=== PATIENT | female | born 1965 | race Caucasian/White ===

== ENCOUNTER 2022-03-28 20:52 | Observation (INO) | payer MEDICARE, SELFPAY ==
[2022-03-28] VITALS (8 sets, daily range): BP systolic 118–130; BP diastolic 56–76; PULSE 70–85; RESP 22–29; TEMP 36.5; O2SAT 79–100
--- NOTE | 2022-03-28 21:02 | DI.RAD.S_ITS ---
PROCEDURE: XR RIBS LT MIN 3V W CXR1V INDICATIONS: fall TECHNIQUE: 3 views of the left ribs were acquired, along with a single view chest. COMPARISON: None. FINDINGS: Surgical changes and devices: None. Bones and chest wall: There is a questionable nondisplaced lateral 5th and 6th rib fractures. They are not well seen on all views. No suspicious bony lesions. Overlying soft tissues appear unremarkable. Lungs and pleura: No pleural effusions or pneumothorax. Lungs appear clear. Mediastinum: Mediastinal contours appear normal. Heart size is normal. IMPRESSION: Questionable nondisplaced lateral 5th and 6th left rib fractures. It is noted the irregularity is not seen on all views and could be artifactual. Dictated by: Zohreh Veras M.D. on 03/28/2022 at 22:36 Approved by: Zohreh Veras M.D. on 03/28/2022 at 22:38
--- NOTE | 2022-03-28 21:13 | ED_ITS ---
HPI - Fall General Chief Complaint: Fall Stated Complaint: Left side pain Time Seen by Provider: 03/28/22 21:09 Source: patient and EMS Mode of arrival: EMS History of Present Illness HPI Narrative: Patient is a 57-year-old female without significant past medical history presenting today after a fall and vomiting. She is going through a divorce she started drinking alcohol 2 weeks ago but has not had anything to drink it really untill this morning. He says she fell 2 weeks ago she had blackout drunk. She day her sister came to check on her, she says she was belligerent she was screaming, possibly fell and hit her head. She has now been vomiting most of the day is. Patient is really complaining of some left-sided hip and rib pain. No shortness of breath. She currently has persistent vomiting. Related Data Home Medications Medication Instructions Recorded Confirmed Cyclobenzaprine Hydrochloride 10 mg PO PRN ##0 08/26/11 03/29/22 (#FLEXERIL) HYDROCODONE/ACET (HYDROCODONE 1 tab PO BID ##0 08/26/11 03/29/22 BITARTRATE-ACETAMINOPHEN) ZINC GLUCONATE (#ZINC) 25 mg PO QDAY ##0 08/26/11 03/29/22 [CALCIUM MAGNESIUM ] ##0 08/26/11 ibuprofen 800 mg tablet 800 mg PO TID ##0 08/26/11 03/29/22 ondansetron HCl 4 mg tablet 4 mg PO TID ##0 08/26/11 03/29/22 Allergies Allergy/AdvReac Type Severity Reaction Status Date / Time acetaminophen [From Vicodin] AdvReac Unknown Verified 03/28/22 21:53 hydrocodone [From Vicodin] AdvReac Unknown Verified 03/28/22 21:53 Review of Systems Review of Systems Narrative: GENERAL: Denies chills, fatigue, malaise, fever, sweats, travel HEENT: Denies sinus pain, ear pain, sore throat, difficulty swallowing, neck pain RESPIRATORY: Denies dyspnea, cough, wheezing, hemoptysis, sputum. CARDIOVASCULAR: Denies chest pain, palpitations, orthopnea, edema GASTROINTESTINAL: See HPI : Denies dysuria, frequency, incontinence, hematuria, urinary retention, flank pain. MUSCULOSKELETAL: Denies weakness, joint pain, or bony pain SKIN: No rash, no erythema, no pruritus NEUROLOGIC: Denies weakness, dizziness, headache, numbness, change in speech, confusion PSYCHIATRIC: No concerning psychosocial issues. 12 point review of systems is negative except for those stated above and HPI Patient History Social History household members: none Smoking Status: Never smoker alcohol intake: current Exam Initial Vital Signs Initial Vital Signs: Vital Signs Temperature 97.7 F 03/28/22 20:56 Pulse Rate 82 03/28/22 20:56 Respiratory Rate 22 03/28/22 20:56 Blood Pressure 130/76 03/28/22 20:56 Pulse Oximetry 98 03/28/22 20:56 Oxygen Delivery Method 03/28/22 20:56 GENERAL: Alert 57-year-old female and in no acute distress. HEENT: Head atraumatic,EOMI, pupils reactive, face symmetric, moist mucous membranes CARDIOVASCULAR: Regular rate and rhythm without murmurs, rubs or gallops. No paradoxical movements no contusion no sign of trauma RESPIRATORY: Breath sounds equal bilaterally, no wheezes rales or rhonchi. ABDOMEN: Soft, nontender. Normoactive bowel sounds all 4 quadrants. No guarding or rebound. EXTREMITIES: Normal range of motion, no clubbing or edema. Neurovascularly intact. Mild tenderness left hip and lumbar area no vertebral tenderness left rib pain NEUROLOGICAL: Alert and oriented x4.Normal gait and speech. SKIN: Warm, dry, no laceration, no petechiae, no rashes or lesions. Course Orders Ordered: ED Orders 03/28/22 20:38 CBC Auto Diff [Complete Blood Count AUTO DIFF] Stat CMP [Comprehensive Metabolic Panel] Stat ETOH [Ethanol (ETOH)] Stat Lactate (Lactic Acid) Stat Lipase Stat 03/28/22 21:02 XR ribs LT min 3V w CXR1V Stat 03/28/22 21:20 CT head/brain wo con Stat 03/28/22 23:22 CT cervical spine wo con Stat CT chest abd pel w con Stat 03/29/22 EKG-12 Lead Routine Acetaminophen (Acetaminophen 325 Mg Tablet) 650 mg PO Q6HR PRN PRN Reason: Fever/Mild Pain (1-3) Sodium Chloride (Normal Saline 0.9%) 1,000 mls @ 125 mls/hr IV CONT OLIVIER Last Admin: 03/29/22 03:15 Dose: 125 mls/hr Documented By: MEL Morphine Sulfate (Morphine 4 Mg/Ml Inj) 4 mg IV Q2HR PRN PRN Reason: Pain, Moderate (4-6) Ondansetron HCl (Ondansetron 4 Mg/2 Ml Inj) 4 mg IV Q4HR PRN PRN Reason: Nausea And Vomiting Discontinued Medications Sodium Chloride (Normal Saline 0.9%) 1,000 mls @ 1,000 mls/hr IV BOLUS ONE Stop: 03/28/22 22:19 Last Infusion: 03/29/22 02:34 Dose: 0 mls/hr Documented By: Admin: 03/28/22 21:52 Dose: 1,000 mls/hr Documented By: ANTIONE Methylprednisolone (Methylprednisolone 125 Mg/2 Ml Vial) 125 mg IV NOW ONE Stop: 03/28/22 23:45 Last Admin: 03/28/22 23:53 Dose: 125 mg Documented By: ANTIONE Morphine Sulfate (Morphine 4 Mg/Ml Inj) 4 mg IV NOW ONE Stop: 03/29/22 01:57 Last Admin: 03/29/22 02:05 Dose: 4 mg Documented By: CORBY Morphine Sulfate (Morphine 4 Mg/Ml Inj) 4 mg IV Q2HR OLIVIER Last Admin: 03/29/22 03:16 Dose: 4 mg Documented By: MEL Ondansetron HCl (Ondansetron 4 Mg/2 Ml Inj) 4 mg IV NOW ONE Stop: 03/28/22 21:21 Last Admin: 03/28/22 21:52 Dose: 4 mg Documented By: ANTIONE Ondansetron HCl (Ondansetron 4 Mg/2 Ml Inj) 4 mg IV NOW ONE Stop: 03/29/22 01:57 Last Admin: 03/29/22 02:05 Dose: 4 mg Documented By: CORBY Pantoprazole Sodium (Pantoprazole 40 Mg Vial) 40 mg IV NOW ONE Stop: 03/28/22 21:21 Last Admin: 03/28/22 21:52 Dose: 40 mg Documented By: ATNIONE Vital Signs Vital signs: Vital Signs - 8 hr 03/28/22 22:09 03/28/22 22:10 03/28/22 22:10 Pulse Rate 81 80 Respiratory Rate Blood Pressure 118/73 Pulse Oximetry 100 100 03/28/22 22:30 03/28/22 23:00 03/28/22 23:46 Pulse Rate 83 83 85 Respiratory Rate 29 H Blood Pressure Pulse Oximetry 99 98 03/28/22 23:50 03/28/22 23:50 03/29/22 00:00 Pulse Rate 81 Respiratory Rate 29 H Blood Pressure 118/56 L 108/56 L Pulse Oximetry 100 03/29/22 00:00 03/29/22 00:15 03/29/22 00:15 Pulse Rate 79 75 Respiratory Rate 24 41 H Blood Pressure 129/70 Pulse Oximetry 100 100 03/29/22 00:30 03/29/22 00:30 03/29/22 00:45 Pulse Rate 79 85 Respiratory Rate 20 38 H Blood Pressure 115/61 Pulse Oximetry 100 03/29/22 00:45 03/29/22 01:00 03/29/22 01:00 Pulse Rate 81 Respiratory Rate 33 H Blood Pressure 117/62 114/71 Pulse Oximetry 99 - Fall Lab Data Result diagrams: 03/28/22 20:38 03/28/22 20:38 Labs: Lab Results 03/28/22 03/28/22 03/28/22 Range/Units 20:38 20:38 20:38 WBC 12.0 H (4.5-11.0) X10^3/uL RBC 4.08 (4.0-5.2) X10^6/uL Hgb 13.2 (12.0-16.0) g/dL Hct 38.7 (36-46) % MCV 94.8 (80-100) fL MCH 32.4 (26-34) PG MCHC 34.2 (30-36) % RDW 13.0 (11.6-14.8) % Plt Count 336 (150-400) X10^3/uL Neut % (Auto) 90.4 H (50-75) % Lymph % (Auto) 6.9 L (25-40) % [place] % (Auto) 2.3 L (3-14) % Eos % (Auto) 0.0 L (2-4) % Baso % (Auto) 0.4 (0-2) % Neut # (Auto) 27394 H (9272-2595) /uL Lymph # (Auto) 800 L (6701-7281) /uL [place] # (Auto) 300 (0-900) /uL Eos # (Auto) 0 (0-450) /uL Baso # (Auto) 100 (0-100) /uL Sodium 136 L (137-145) mmol/L Potassium 3.9 (3.4-5.1) mmol/L Chloride 100 (98-107) mmol/L Carbon Dioxide 22 (22-32) mmol/L BUN 12 (7-17) mg/dL Creatinine 0.60 (0.52-1.04) mg/dL Estimated GFR > 60 (>60) mL/min BUN/Creatinine Ratio 20.0 (6-22) Glucose 116 H (70-100) mg/dL Lactate 2.9 H (0.7-2.1) mmol/L Calcium 9.9 (8.4-10.2) mg/dL Total Bilirubin 0.5 (0.2-1.3) mg/dL AST 58 H (14-36) IU/L ALT 54 H (<35) IU/L Alkaline Phosphatase 120 (38-126) U/L Total Protein 8.2 (6.3-8.2) g/dL Albumin 4.4 (3.5-5.0) g/dL Globulin 3.8 (1.7-4.1) g/dL Albumin/Globulin Ratio 1.2 (1.0-2.8) Lipase 67 (23-300) U/L Ethyl Alcohol 111 H ( - 10) mg/dL 03/29/22 Range/Units 00:30 WBC (4.5-11.0) X10^3/uL RBC (4.0-5.2) X10^6/uL Hgb (12.0-16.0) g/dL Hct (36-46) % MCV (80-100) fL MCH (26-34) PG MCHC (30-36) % RDW (11.6-14.8) % Plt Count (150-400) X10^3/uL Neut % (Auto) (50-75) % Lymph % (Auto) (25-40) % [place] % (Auto) (3-14) % Eos % (Auto) (2-4) % Baso % (Auto) (0-2) % Neut # (Auto) (7519-2783) /uL Lymph # (Auto) (9751-3375) /uL [place] # (Auto) (0-900) /uL Eos # (Auto) (0-450) /uL Baso # (Auto) (0-100) /uL Sodium (137-145) mmol/L Potassium (3.4-5.1) mmol/L Chloride (98-107) mmol/L Carbon Dioxide (22-32) mmol/L BUN (7-17) mg/dL Creatinine (0.52-1.04) mg/dL Estimated GFR (>60) mL/min BUN/Creatinine Ratio (6-22) Glucose (70-100) mg/dL Lactate 2.4 H (0.7-2.1) mmol/L Calcium (8.4-10.2) mg/dL Total Bilirubin (0.2-1.3) mg/dL AST (14-36) IU/L ALT (<35) IU/L Alkaline Phosphatase (38-126) U/L Total Protein (6.3-8.2) g/dL Albumin (3.5-5.0) g/dL Globulin (1.7-4.1) g/dL Albumin/Globulin Ratio (1.0-2.8) Lipase (23-300) U/L Ethyl Alcohol ( - 10) mg/dL Imaging Data CT scan - head: Radiologist's Impression: t: Breana Crowley MR#: [id number] : 1965 Acct:[id number] Age/Sex: 57 / F Date of Service: 03/28/22 Loc: ED Accession Number: [id number] ?? Procedure: CT head/brain wo con Ordering Provider: Destinee Mcdaniel D.O. PROCEDURE:? CT HEAD/BRAIN WO CON ? INDICATIONS:? etoh fall ? TECHNIQUE:? Noncontrast 4.5 mm thick angled axial sections acquired from the foramen magnum to the vertex, with coronal and sagittal reformats.? For radiation dose reduction, the following was used:? automated exposure control, adjustment of mA and/or kV according to patient size.? ? COMPARISON:? None. ? FINDINGS:? Image quality:? Excellent.? ? CSF spaces:? Basal cisterns are patent.? Ventricles are normal in overall size.? There is a cystic collection with CSF density along the left frontal lobe measuring approximately 4.1 x 3.6 x 3.2 cm which is likely extra-axial.? There is associated volume loss in the left frontal lobe.? There is mild mass effect on the anterior horn of the left lateral ventricle. ? Brain:? No intracranial hemorrhage.? There is mild rightward midline shift of approximately 0.2 cm secondary to mass effect on the left frontal cystic lesion.? ? Skull and face:? Calvarium and visualized facial bones are intact, without suspicious lesions.? ? Sinuses:? Visualized sinuses and mastoids are clear.? ? IMPRESSION:? ? 1.? No definite acute traumatic intracranial abnormality. ? 2. Cystic lesion along the left frontal lobe with associated mass effect is nonspecific.? The differential includes an arachnoid cyst, encephalomalacia secondary to prior trauma, or sequelae of prior infection.? Recommend follow-up evaluation with a contrast enhanced MRI. ? ? Dictated by: Ion Millan M.D. on 03/28/2022 at 22:37 ? ? Approved by: Ion Millan M.D. on 03/28/2022 at 22:48 ? CT - cervical spine: Radiologist's Impression: CT Scan Report Signed Patient: Breana Crowley MR#: [id number] : 1965 Acct:[id number] Age/Sex: 57 / F Date of Service: 03/28/22 Loc: ED Accession Number: [id number] ?? Procedure: CT cervical spine wo con Ordering Provider: Destinee Mcdaniel D.O. PROCEDURE:? CT CERVICAL SPINE WO CON ? INDICATIONS:? fall ? TECHNIQUE:? Noncontrast 3 mm thick sections acquired from the skull base to the T4 level.? Sagittal and coronal reformats were then constructed.? For radiation dose reduction, the following was used:? automated exposure control, adjustment of mA and/or kV according to patient size.? ? COMPARISON:? [facility] [place], CR, SPINE LUMB MIN 4VW, 04/09/2015, 9:48.? [facility], CT, CT CHEST ABD PEL W CON, 03/28/2022, 23:25. ? FINDINGS:? Image quality:? Excellent.? ? Bones:? No fractures or subluxation within the cervical spine.? Visualized superior ribs are intact.? ? Soft tissues:? Prevertebral soft tissues are normal in thickness.? No paravertebral hematomas.? There is subcutaneous emphysema within the left neck and visualized left chest wall.? ? ? IMPRESSION:? ? 1. No fracture or subluxation within the cervical spine. ? 2. Subcutaneous emphysema within the left chest wall.? Recommend correlation with concurrent CT of the chest abdomen pelvis.? Dictated by: Ion Millan M.D. on 03/29/2022 at 0:21 ? ? Approved by: Ion Millan M.D. on 03/29/2022 at 0:28 ? CT scan - chest: Radiologist's Impression: CT Scan Report Signed Patient: Breana Crowley MR#: [id number] : 1965 Acct:[id number] Age/Sex: 57 / F Date of Service: 03/28/22 Loc: ED Accession Number: [id number] ?? Procedure: CT chest abd pel w con Ordering Provider: Destinee Mcdaniel D.O. PROCEDURE:? CT CHEST ABD PEL W CON ? INDICATIONS:? falls, rib fracture ? TECHNIQUE:? After the administration of intravenous contrast, axial sections acquired from the supraclavicular neck to the pubic symphysis.? Coronal and sagittal reformats were performed.? For radiation dose reduction, the following was used:? automated exposure control, adjustment of mA and/or kV according to patient size.? ? COMPARISON: ? [facility], CR, XR RIBS LT MIN 3V W CXR1V, 03/28/2022, 21:53. ? FINDINGS:? Image quality:? Excellent.? ? CHEST: Lower Neck: No lymphadenopathy by size criteria. Thyroid:? Visualized thyroid demonstrates no discrete nodules. Axillae: No lymphadenopathy by size criteria. Chest Wall:? Unremarkable.? ? Lungs and Airways:? There is a small peripheral region of ground-glass opacity along the left lower lobe adjacent to a rib fracture suggestive of a pulmonary contusion with likely small laceration.? There is mild dependent atelectasis bilaterally.? No acute consolidation.? The trachea and central airways are patent. Pleura:? There is a trace left pneumothorax anteriorly in the left lung base.? A minimal dense left pleural fluid collection is present consistent with a minimal hemothorax. ? Heart: Heart size is normal.? No pericardial effusion. Thoracic Vessels: The aorta and pulmonary arteries are normal in size.? Mediastinum and [place]: No lymphadenopathy by size criteria.? No definite mediastinal hematomas.? Esophagus: No wall thickening.? There is a small hiatal hernia. ? ABDOMEN: Liver:? No hepatic lacerations or perihepatic fluid collections. Gallbladder:? Surgically absent Biliary ducts:? No biliary ductal dilatation.? ? Pancreas:? Unremarkable.? ? Spleen:? Normal in size.? No splenic lacerations or perisplenic fluid collections. ? Adrenal Glands:? No adrenal nodules.? ? Kidneys and Ureters:? No hydronephrosis.? ? ? Stomach and Bowel:? Stomach and small bowel loops are normal in caliber and wall thickness.? There is mild wall thickening within the distal ascending, transverse, descending, and sigmoid colon suggestive of a mild colitis.? Peritoneum:? No abnormal intraperitoneal fluid.? No free air.? ? Ventral Wall: ? No hernia.? Abdominal Nodes:? No retroperitoneal or mesenteric adenopathy by size criteria.? Vessels:? Aorta and inferior vena cava are normal in size.? ? PELVIS: Pelvic Organs:? Unremarkable.? ? Bladder:? Unremarkable.? ? Pelvic Nodes: No enlarged lymph nodes.? Miscellaneous: No inguinal hernias are seen. ? ? ? Bones:? There are mildly displaced fractures of the left 8th and 9th ribs posterolaterally.? There is a nondisplaced fracture of the left 8th rib medially adjacent to the costovertebral junction.? There is a suspected nondisplaced fracture of the left 11th rib posteromedially adjacent to the costovertebral junction.? There are nondisplaced fractures through the left transverse processes of T9 and T10.? There is a mildly depressed superior endplate compression fracture of the L1 vertebral body of indeterminate acuity but new compared to the prior x-ray study of 04/09/2015.? There is approximately 15-20% loss of height anteriorly.? No retropulsed fragments in the spinal canal.? Visualized osseous structures demonstrate no suspicious focal lesions. IMPRESSION:? ? 1.? Trace left pneumothorax in the left lung base. ? 2.? Minimal left hemothorax. ? 3.? Multiple left rib fractures as described. ? 4.? Mild superior endplate compression fracture of the L1 vertebral body of indeterminate acuity but new compared to the prior x-ray of 04/09/2015.? No retropulsed fragments in the spinal canal.? Nondisplaced fractures of the left transverse processes of T9 and T10 also noted. ? Findings discussed with Dr. Mcdaniel on 03/29/2022 at 12:24 a.m.. ? Dictated by: Ion Millan M.D. on 03/29/2022 at 0:29 MDM Narrative Medical decision making narrative: The patient is actively vomiting she has fallen she does not remember she has overall very poor historian. The sister says that she saw her fall. She is really complaining of left-sided pain. Head CT does show is a large cyst. Neuro surgery , at [facility], consult states this is likely an incidental finding will likely need surgery but can follow-up as an outpatient. likely needs an outpatient MRI as well. Patient's CT for chest abdomen pelvis show that she has significant subcutaneous air trace left pneumothorax and trace left hemothorax. She is hemodynamically stable Dr. Meeks accepts patient Discharge Plan Departure Patient Disposition: Admitted as Observation Clinical Impression: Multiple rib fractures, Pneumothorax, Intracranial arachnoid cyst Admit Date/Time: 03/29/22 01:02 Admit Provider: Juan M Meeks
--- NOTE | 2022-03-28 21:20 | DI.CT.S_ITS ---
PROCEDURE: CT HEAD/BRAIN WO CON INDICATIONS: etoh fall TECHNIQUE: Noncontrast 4.5 mm thick angled axial sections acquired from the foramen magnum to the vertex, with coronal and sagittal reformats. For radiation dose reduction, the following was used: automated exposure control, adjustment of mA and/or kV according to patient size. COMPARISON: None. FINDINGS: Image quality: Excellent. CSF spaces: Basal cisterns are patent. Ventricles are normal in overall size. There is a cystic collection with CSF density along the left frontal lobe measuring approximately 4.1 x 3.6 x 3.2 cm which is likely extra-axial. There is associated volume loss in the left frontal lobe. There is mild mass effect on the anterior horn of the left lateral ventricle. Brain: No intracranial hemorrhage. There is mild rightward midline shift of approximately 0.2 cm secondary to mass effect on the left frontal cystic lesion. Skull and face: Calvarium and visualized facial bones are intact, without suspicious lesions. Sinuses: Visualized sinuses and mastoids are clear. IMPRESSION: 1. No definite acute traumatic intracranial abnormality. 2. Cystic lesion along the left frontal lobe with associated mass effect is nonspecific. The differential includes an arachnoid cyst, encephalomalacia secondary to prior trauma, or sequelae of prior infection. Recommend follow-up evaluation with a contrast enhanced MRI. Dictated by: Ion Millan M.D. on 03/28/2022 at 22:37 Approved by: Ion Millan M.D. on 03/28/2022 at 22:48
[2022-03-28 21:49] LABS: Add Manual Diff / Slide Review NO; Basophils Absolute Auto 100 /uL (0-100); Basophils Percent Auto 0.4 % (0-2); Eosinophils Absolute Auto 0 /uL (0-450); Hematocrit 38.7 % (36-46); Hemoglobin 13.2 g/dL (12.0-16.0); Lymphocytes Absolute Auto 800 /uL (1100-4500); Lymphocytes Percent Auto 6.9 % (25-40); Mean Corpuscular HGB Conc 34.2 % (30-36); Mean Corpuscular Hemoglobin 32.4 PG (26-34); Mean Corpuscular Volume 94.8 fL (80-100); Monocytes Absolute Auto 300 /uL (0-900); Monocytes Percent Auto 2.3 % (3-14); Neutrophils Absolute Auto 10900 /uL (1500-7000); Neutrophils Percent Auto 90.4 % (50-75); Platelet Count 336 X10^3/uL (150-400); Red Blood Cell Count 4.08 X10^6/uL (4.0-5.2)
[2022-03-28] MEDS: PANTOPRAZOLE 40 MG VIAL IV (21:52)
[2022-03-28] MEDS: ONDANSETRON 4 MG/2 ML INJ IV (21:52)
[2022-03-28] MEDS: SODIUM CHLORIDE 0.9% 1,000 ML 1000 ML IV (21:52)
[2022-03-28 21:57] LABS: Alanine Aminotransferase 54 IU/L (<35); Albumin 4.4 g/dL (3.5-5.0); Albumin Globulin Ratio 1.2 (1.0-2.8); Alkaline Phosphatase 120 U/L (38-126); Aspartate Aminotransferase 58 IU/L (14-36); Bilirubin Total 0.5 mg/dL (0.2-1.3); Blood Urea Nitrogen 12 mg/dL (7-17); Calcium 9.9 mg/dL (8.4-10.2); Carbon Dioxide 22 mmol/L (22-32); Chloride 100 mmol/L (98-107); Estimated Glomerular Filt Rate > 60 mL/min (>60); Ethanol (ETOH) 111 mg/dL; Globulin 3.8 g/dL (1.7-4.1); Glucose 116 mg/dL (70-100); HEMOLYSIS 16 (0-50); Lipase 67 U/L (23-300); Potassium 3.9 mmol/L (3.4-5.1); Sodium 136 mmol/L (137-145); Total Protein 8.2 g/dL (6.3-8.2)
[2022-03-28 22:09] LABS: Lactate (Lactic Acid) 2.9 mmol/L (0.7-2.1)
--- NOTE | 2022-03-28 23:22 | DI.CT.S_ITS ---
PROCEDURE: CT CERVICAL SPINE WO CON INDICATIONS: fall TECHNIQUE: Noncontrast 3 mm thick sections acquired from the skull base to the T4 level. Sagittal and coronal reformats were then constructed. For radiation dose reduction, the following was used: automated exposure control, adjustment of mA and/or kV according to patient size. COMPARISON: [facility] [place], CR, SPINE LUMB MIN 4VW, 04/09/2015, 9:48. [facility], CT, CT CHEST ABD PEL W CON, 03/28/2022, 23:25. FINDINGS: Image quality: Excellent. Bones: No fractures or subluxation within the cervical spine. Visualized superior ribs are intact. Soft tissues: Prevertebral soft tissues are normal in thickness. No paravertebral hematomas. There is subcutaneous emphysema within the left neck and visualized left chest wall. IMPRESSION: 1. No fracture or subluxation within the cervical spine. 2. Subcutaneous emphysema within the left chest wall. Recommend correlation with concurrent CT of the chest abdomen pelvis. Dictated by: Ion Millan M.D. on 03/29/2022 at 0:21 Approved by: Ion Millan M.D. on 03/29/2022 at 0:28
--- NOTE | 2022-03-28 23:22 | DI.CT.S_ITS ---
PROCEDURE: CT CHEST ABD PEL W CON INDICATIONS: falls, rib fracture TECHNIQUE: After the administration of intravenous contrast, axial sections acquired from the supraclavicular neck to the pubic symphysis. Coronal and sagittal reformats were performed. For radiation dose reduction, the following was used: automated exposure control, adjustment of mA and/or kV according to patient size. COMPARISON: [facility], CR, XR RIBS LT MIN 3V W CXR1V, 03/28/2022, 21:53. FINDINGS: Image quality: Excellent. CHEST: Lower Neck: No lymphadenopathy by size criteria. Thyroid: Visualized thyroid demonstrates no discrete nodules. Axillae: No lymphadenopathy by size criteria. Chest Wall: Unremarkable. Lungs and Airways: There is a small peripheral region of ground-glass opacity along the left lower lobe adjacent to a rib fracture suggestive of a pulmonary contusion with likely small laceration. There is mild dependent atelectasis bilaterally. No acute consolidation. The trachea and central airways are patent. Pleura: There is a trace left pneumothorax anteriorly in the left lung base. A minimal dense left pleural fluid collection is present consistent with a minimal hemothorax. Heart: Heart size is normal. No pericardial effusion. Thoracic Vessels: The aorta and pulmonary arteries are normal in size. Mediastinum and Kimberlee: No lymphadenopathy by size criteria. No definite mediastinal hematomas. Esophagus: No wall thickening. There is a small hiatal hernia. ABDOMEN: Liver: No hepatic lacerations or perihepatic fluid collections. Gallbladder: Surgically absent Biliary ducts: No biliary ductal dilatation. Pancreas: Unremarkable. Spleen: Normal in size. No splenic lacerations or perisplenic fluid collections. Adrenal Glands: No adrenal nodules. Kidneys and Ureters: No hydronephrosis. Stomach and Bowel: Stomach and small bowel loops are normal in caliber and wall thickness. There is mild wall thickening within the distal ascending, transverse, descending, and sigmoid colon suggestive of a mild colitis. Peritoneum: No abnormal intraperitoneal fluid. No free air. Ventral Wall: No hernia. Abdominal Nodes: No retroperitoneal or mesenteric adenopathy by size criteria. Vessels: Aorta and inferior vena cava are normal in size. PELVIS: Pelvic Organs: Unremarkable. Bladder: Unremarkable. Pelvic Nodes: No enlarged lymph nodes. Miscellaneous: No inguinal hernias are seen. Bones: There are mildly displaced fractures of the left 8th and 9th ribs posterolaterally. There is a nondisplaced fracture of the left 8th rib medially adjacent to the costovertebral junction. There is a suspected nondisplaced fracture of the left 11th rib posteromedially adjacent to the costovertebral junction. There are nondisplaced fractures through the left transverse processes of T9 and T10. There is a mildly depressed superior endplate compression fracture of the L1 vertebral body of indeterminate acuity but new compared to the prior x-ray study of 04/09/2015. There is approximately 15-20% loss of height anteriorly. No retropulsed fragments in the spinal canal. Visualized osseous structures demonstrate no suspicious focal lesions. IMPRESSION: 1. Trace left pneumothorax in the left lung base. 2. Minimal left hemothorax. 3. Multiple left rib fractures as described. 4. Mild superior endplate compression fracture of the L1 vertebral body of indeterminate acuity but new compared to the prior x-ray of 04/09/2015. No retropulsed fragments in the spinal canal. Nondisplaced fractures of the left transverse processes of T9 and T10 also noted. Findings discussed with Dr. Mcdaniel on 03/29/2022 at 12:24 a.m.. Dictated by: Ion Millan M.D. on 03/29/2022 at 0:29 Approved by: Ion Millan M.D. on 03/29/2022 at 0:40
[2022-03-28 23:42] LABS: Reflexed Lactate in 2 Hours Y
[2022-03-28] MEDS: methylPREDNISolone 125 MG/2 ML VIAL IV (23:53)
[2022-03-29] VITALS (14 sets, daily range): BP systolic 108–129; BP diastolic 56–80; PULSE 74–86; RESP 16–41; TEMP 36.6–37.1; O2SAT 98–100; BMI 18.2
--- NOTE | 2022-03-29 | DI.RAD.S_ITS ---
PROCEDURE: XR CHEST 1V INDICATIONS: pneumothorax TECHNIQUE: One view of the chest was acquired. COMPARISON: [facility], CT, CT CHEST ABD PEL W CON, 03/28/2022, 23:25. [facility], CR, CHEST 2 VIEW, 08/21/2011, 5:01. [facility], CR, XR RIBS LT MIN 3V W CXR1V, 03/28/2022, 21:53. FINDINGS: Surgical changes and devices: None. Lungs and pleura: Previously identified left pneumothorax is not well seen.. Right costophrenic angle is incompletely evaluated as it is not included within the field of view. Mediastinum: Mediastinal contours appear normal. Heart size is normal. Bones and chest wall: No suspicious bony lesions. Multiple left-sided rib fractures are again noted. Overlying soft tissues appear unremarkable. IMPRESSION: Multiple rib fractures. Previous small left pneumothorax identified on CT on 03/28/2022 is not well seen. Dictated by: Zohreh Veras M.D. on 03/29/2022 at 8:44 Approved by: Zohreh Veras M.D. on 03/29/2022 at 8:54
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
[2022-03-29 00:50] LABS: Lactate 2HR (Lactic Acid Rflx) 2.4 mmol/L (0.7-2.1)
[2022-03-29 01:42] LABS: COVID19 -Nasal RAPID Negative (Negative)
[2022-03-29] MEDS: MORPHINE 4 MG/ML INJ IV ×3 (02:05→05:33)
[2022-03-29] MEDS: ONDANSETRON 4 MG/2 ML INJ IV (02:05)
[2022-03-29] MEDS: SODIUM CHLORIDE 0.9% 1,000 ML 125 ML IV (03:15)
--- NOTE | 2022-03-29 04:06 | PC.NURSE ---
Admit/NOC Shift Note- Patient arrived to room via stretcher from ER at 0255. Patient able to scoot self from stretcher to bed on her own. Patient alert and oriented and able to make needs known to staff. Admit questions done, medications reviewed, physical assessment done, anmd skin check completed. Patient oriented to bed and bed controls, room, lights, phone, menu, and call [employer]/tv remote. Patient agrees to call for assistance. Bed alarm activated. Call [employer] and phone within reach. Will continue to monitor.
[2022-03-29] MEDS: HYDROMORPHONE 0.5 MG INJ IV (08:20)
[2022-03-29] MEDS: ENOXAPARIN 40 MG/0.4 ML SYRINGE SUBCUT (08:21)
[2022-03-29] MEDS: OXYCODONE IR 5 MG TABLET PO ×2 (08:58→12:40)
[2022-03-29] MEDS: ACETAMINOPHEN 325 MG TABLET 650 MG PO (08:59)
[2022-03-29] MEDS: IBUPROFEN 600 MG TABLET PO (12:39)
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
== END 2022-03-29 15:40 | disposition home or self-care (01) ==
LOC: ED 21:09 → AC 03-29 01:03
PROVIDERS: Admitting Provider Surgery; Emergency Provider Emergency Medicine; Family Provider Family Medicine; PCP Family Medicine; Visit Provider Surgery
DX: S27.2XXA Traumatic hemopneumothorax, initial encounter (principal); S22.42XA Multiple fractures of ribs, left side, initial encounter for closed fracture; W19.XXXA Unspecified fall, initial encounter; M25.552 Pain in left hip; R11.10 Vomiting, unspecified; F10.90 Alcohol use, unspecified, uncomplicated; Y90.5 Blood alcohol level of 100-119 mg/100 ml; G93.0 Cerebral cysts; Z20.822 Contact with and (suspected) exposure to COVID-19
CPT/HCPCS: 36415; 70450; 71045; 71101; 71260; 72125; 74177; 80053; 80320; 83605; 83690; 85025; 87635; 93005; 93010; 96361; 96374; 96375; 96376; 99218; 99284; C9803; G0378; C9113; J1170; J1650; J2270; J2405; J2930; Q9967

== ENCOUNTER → 2022-05-01 10:34 | Outpatient (CLI) | payer MEDICARE, SELFPAY ==
[2022-03-29 01:15] VITALS: BMI 18.2
--- NOTE | 2022-05-01 10:36 | DI.MRI.S_ITS ---
PROCEDURE: MR HEAD/BRAIN WO/W CON INDICATIONS: Cerebral cysts TECHNIQUE: Noncontrast axial T1 spin echo, axial T2 fast spin echo, sagittal and axial FLAIR, coronal T2 fast spin echo, axial gradient echo, axial diffusion and ADC through the brain. After the administration of contrast, axial and coronal and sagittal 3D VIBE or T1 spin echo with fat saturation through the brain. COMPARISON: [facility], MR, BRAIN WITH AND WITHOUT CONTRAS, 08/23/2011, 12:42. FINDINGS: Image quality: Excellent. CSF Spaces: Basal cisterns are patent. No extra-axial fluid collections. Ventricles are normal in size and shape. Brain: No midline shift. No intracranial bleeds . The previously seen well-circumscribed high T2 intensity focus within the left frontal lobe has increased in size, currently measuring roughly 40 mm anteroposterior by 37 mm transverse by 40 mm craniocaudal. There is an increased, mild to moderate degree of patchy high FLAIR signal foci within the periventricular and subcortical white matter, predominantly within the bilateral frontal lobes. No abnormal intracranial enhancement. The brainstem appears normal. Diffusion-weighted images demonstrate no acute ischemic insults. No chronic ischemic insults. Normal intravascular flow voids are present. Skull and face: Calvarial marrow is normal in signal. Orbits appear normal. Sinuses: Sinuses and mastoids appear clear. IMPRESSION: 1. Increased left frontal cyst, consistent with an arachnoid cyst. 2. Increased, mild to moderate degree of white matter disease. Differential considerations include small vessel ischemic disease, diabetes mellitus, migraines, vasculitides, and demyelinating disorders such as multiple sclerosis. Dictated by: Lula Gutierrez M.D. on 05/01/2022 at 12:01 Approved by: Lula Gutierrez M.D. on 05/01/2022 at 12:05
== END ==
PROVIDERS: Family Provider Family Medicine; PCP Family Medicine; Referring Provider Neurological Surgery; Visit Provider Neurological Surgery
DX: G93.0 Cerebral cysts (principal); R90.82 White matter disease, unspecified
CPT/HCPCS: 70553; A9579

== ENCOUNTER → 2022-10-21 12:08 | Outpatient (CLI) | payer MEDICARE, SELFPAY ==
[2022-03-29 01:15] VITALS: BMI 18.2
--- NOTE | 2022-10-21 | DI.MRI.S_ITS ---
PROCEDURE: MR HEAD/BRAIN WO/W CON INDICATIONS: Cerebral cysts TECHNIQUE: Noncontrast axial T1 spin echo, axial T2 fast spin echo, sagittal and axial FLAIR, coronal T2 fast spin echo, axial gradient echo, axial diffusion and ADC through the brain. After the administration of contrast, axial and coronal and sagittal 3D VIBE or T1 spin echo with fat saturation through the brain. COMPARISON: [facility], MR, MR HEAD/BRAIN WO/W CON, 05/01/2022, 11:26. FINDINGS: Image quality: Excellent. CSF Spaces: Basal cisterns are patent. No extra-axial fluid collections. Ventricles are normal in size and shape. Brain: Left frontal intra-axial cystic structure measures 4 cm in diameter, similar in size to the prior exam. No associated edema or restricted diffusion. No enhancement. Mild mass effect on the frontal horn of the left lateral ventricle. No calvarial scalloping or reaction. Otherwise, there is no evidence of acute infarct or hemorrhage. No abnormal enhancement. Multifocal white matter hyperintensities predominantly in the subcortical white matter noted. No significant atrophy. Skull and face: Calvarial marrow is normal in signal. Orbits appear normal. Sinuses: Small right maxillary sinus retention cyst, less than 1 cm IMPRESSION: 1. Stable benign-appearing left frontal intra-axial cyst, consistent with stable neuroglial cyst 2. Nonspecific multifocal white matter hyperintensities, most likely reflect chronic ischemic change Approved by: Corby Coley M.D. on 10/23/2022 at 10:58
== END ==
PROVIDERS: Family Provider Family Medicine; PCP Family Medicine; Referring Provider Neurological Surgery; Visit Provider Neurological Surgery
DX: G93.0 Cerebral cysts (principal)
CPT/HCPCS: 70553; A9579